=== PATIENT | female | born 1980 | race Caucasian/White ===

== ENCOUNTER → 2016-09-09 | Outpatient (CLI) | payer OTHER ==
[~2016-09-09] MED LIST: CHOL100010 PO; CLIN150C PO; DOCU-94 PO; FRRS300 PO; MTR600X PO; OXYC-57 PO; OXYC7.5T78 PO; PREN1TAB29 PO
[2016-09-09 13:11] LABS: GTGD 50 Grams
[2016-09-10 13:57] LABS: AFP CONCENTRATION 45.5 NG/ML; AFP MULTIPLE OF MEDIAN 1.52; AFPTS GESTATIONAL AGE 15.4 WEEKS; AFPTS INSULIN DEP DIABETIC? NO; AFPTS MATERNAL WT 151 LBS; ALPHA-FETOPROTEIN RACE CAUCASIAN=W; EDD DETERMINED BY ULTRASOUND; HISTORY OF NTD NO; REPEAT SAMPLE? NO
== END | disposition home or self-care (01) ==
LOC: C.LAB1850 10:50
PROVIDERS: ATTEND Obstetrics & Gynecology
DX: O09.02 Supervision of pregnancy with history of infertility, second trimester (principal); Z3A.00 Weeks of gestation of pregnancy not specified; O09.813 Supervision of pregnancy resulting from assisted reproductive technology, third trimester

== ENCOUNTER → 2016-09-16 | Outpatient (CLI) | payer OTHER | END | disposition home or self-care (01) | LOC: C.LAB1850 09:01 | PROVIDERS: ATTEND Obstetrics & Gynecology | DX: O28.1 Abnormal biochemical finding on antenatal screening of mother (principal); Z3A.00 Weeks of gestation of pregnancy not specified ==

== ENCOUNTER → 2016-12-03 | Outpatient (CLI) | payer OTHER ==
[2016-12-03 10:43] LABS: HEMATOCRIT 32.4 % (37-47)
[2016-12-03 13:03] LABS: URINE APPEARANCE CLEAR (CLEAR); URINE BILIRUBIN NEG (NEG); URINE COLOR YELLOW; URINE NITRITE NEG (NEG); URINE PH 6.5 (4.5-7.5); URINE SPECIFIC GRAVITY 1.013 (1.000-1.030); UROBILINOGEN NEG (NEG)
[2016-12-03 13:11] LABS: MANUAL MICROSCOPIC REQUIRED? NO; REVIEW REQ? NO
== END | disposition home or self-care (01) ==
LOC: C.LAB1850 08:55
PROVIDERS: ATTEND Obstetrics & Gynecology
DX: O09.813 Supervision of pregnancy resulting from assisted reproductive technology, third trimester (principal); Z3A.00 Weeks of gestation of pregnancy not specified

== ENCOUNTER → 2017-02-04 | Outpatient (CLI) | payer OTHER | END | disposition home or self-care (01) | LOC: C.LABSPEC 13:28 | PROVIDERS: ATTEND Obstetrics & Gynecology | DX: O09.813 Supervision of pregnancy resulting from assisted reproductive technology, third trimester (principal) ==

== ENCOUNTER 2017-03-07 03:42 | Inpatient (IN) | payer OTHER ==
[~2017-03-07] VITALS: Ht 157.5 cm; Wt 79.5 kg
[~2017-03-07 03:42] MED LIST changes: -CLIN150C PO; -DOCU-94 PO; -FRRS300 PO; -MTR600X PO; -OXYC-57 PO
[2017-03-07] MEDS ORDERED: DOCU-94 PO (04:41)
[2017-03-07 04:43] VITALS: Ht 157.5 cm; Wt 79.5 kg
[2017-03-07] MEDS ORDERED: PENICILLIN G POTASSIUM IV 6 MU in DEXTROSE 5% 250ML IV SCH (04:45)
[2017-03-07] MEDS ORDERED: NURSING VERBAL MED ORDER ONE ×3 (04:45)
[2017-03-07] MEDS ORDERED: BUTORPHANOL TARTRATE 1 MG/ML VIAL IV ONE (04:45)
[2017-03-07] MEDS ORDERED: LACTATED RINGER'S 1000ML 1,000 ML IV PRN (05:21)
[2017-03-07] MEDS: LACTATED RINGER'S 1000ML 1,000 ML IV SCH ×4 (05:57→16:08)
[2017-03-07] MEDS ORDERED: BUPIVACAINE 0.25% 30 ML VIAL ONE (06:14)
[2017-03-07] MEDS ORDERED: EpHEDrine SULFATE INJ 50 MG/ML AMP ONE (06:14)
[2017-03-07] MEDS ORDERED: FENTANYL CITRATE INJ 50 MCG/1 ML 2 ML VIAL ONE (06:14)
[2017-03-07] MEDS ORDERED: FENTANYL 2MCG/ML ROPIV 1.25MG/ML 100ML BAG EPI ONE (06:14)
[2017-03-07 06:18] LABS: MEAN CELL VOLUME 99.7 fL (80-100); MEAN CORPUSCULAR HEMOGLOBIN 32.9 pg (25-34); PLATELET COUNT 143 K/uL (130-400); RED BLOOD COUNT 3.31 M/uL (4.2-5.4); WHITE BLOOD COUNT 11.06 K/uL (4.8-10.8)
[2017-03-07] MEDS ORDERED: LACTATED RINGER'S 1000ML 500 ML IV PRN ×3 (07:23→17:44)
[2017-03-07] MEDS ORDERED: NALOXONE HCL INJ 1 MG in SODIUM CHLORIDE 0.9% 1000ML 1,000 ML IV PRN ×5 (07:23→17:44)
[2017-03-07] MEDS ORDERED: PROMETHAZINE HCL INJ 25 MG in SODIUM CHLORIDE 0.9% 50ML 50 ML IV PRN (07:30)
[2017-03-07] MEDS ORDERED: DiphenhydrAMINE HCL 50 MG/ML VIAL IV PRN ×2 (07:30→17:45)
[2017-03-07] MEDS ORDERED: ONDANSETRON INJ 2 MG/ML 2 ML VIAL IV PRN ×2 (07:30→17:45)
[2017-03-07] MEDS ORDERED: NALOXONE HCL INJ 0.4 MG/1 ML VIAL/CARP IV PRN (07:30)
[2017-03-07] MEDS ORDERED: NALBUPHINE HCL INJ 10 MG/ML AMP IV PRN ×2 (07:30→17:45)
[2017-03-07] MEDS ORDERED: FENTANYL 2MCG/ML ROPIV 1.25MG/ML 100ML BAG EPI PRN (07:30)
[2017-03-07] MEDS ORDERED: EpHEDrine SULFATE INJ 50 MG/ML AMP IV PRN ×2 (07:30→17:45)
[2017-03-07] MEDS ORDERED: OXYTOCIN 30 UNITS/500ML NSS IV PRN (08:00)
[2017-03-07] MEDS: PENICILLIN G POTASSIUM IV 3 MU in DEXTROSE 5% 100ML IV PRN ×2 (08:44→12:41)
[2017-03-07] MEDS ORDERED: ACETAMINOPHEN 500 MG TAB PO STA (13:54)
[2017-03-07] MEDS ORDERED: LACTATED RINGER'S 1000ML 1,000 ML IV SCH ×2 (15:56→17:33)
[2017-03-07] MEDS ORDERED: CITRIC ACID/SODIUM CITRATE 15 ML UDC PO ONE (16:00)
[2017-03-07] MEDS ORDERED: CEFAZOLIN IV 2,000 MG in DEXTROSE 5% 50ML 50 ML IV SCH (16:15)
--- NOTE | 2017-03-07 16:21 | History & Physical Bridge Note ---
H&P Re-Evaluation Bridge Note: I have examined the patient, reviewed the History & Physical and in the interval since the performance of the History & Physical I have noted the following changes of clinical significance: No changes noted. See my last note in QS for details. pt readied for c/s.
[2017-03-07] MEDS ORDERED: MoRPHine SULFATE PF 1 MG/ML 10 ML AMP/VIAL ONE (16:23)
[2017-03-07] MEDS ORDERED: OXYTOCIN INJ 10 UNITS/ML VIAL ONE (16:23)
[2017-03-07] MEDS ORDERED: CARBOPROST TROMETHAMINE 250 MCG/ML AMP ONE (16:51)
[2017-03-07] MEDS ORDERED: KETOROLAC TROMETHAMINE 30 MG/ML VIAL ONE (17:26)
[2017-03-07] MEDS ORDERED: SODIUM CHLORIDE 0.9% 1000ML 1,000 ML IV PRN (17:44)
[2017-03-07] MEDS ORDERED: NALOXONE HCL INJ 0.08 MG in SYRINGE 1.8 ML IV PRN (17:44)
--- NOTE | 2017-03-07 17:44 | Anesthesia Procedure Note ---
Anesthesia Epidural Removal Nt Date & Time Mar 07, 2017 at 17:43 Vital Signs Pain Intensity: 6.0 Notes Mental Status: alert / awake / arousable, participated in evaluation Nausea / Vomiting: adequately controlled Pain: adequately controlled Airway Patency, RR, SpO2: stable & adequate BP & HR: stable & adequate Hydration State: stable & adequate Neuraxial Anesthesia: was administered Anesthetic Complications: no major complications apparent, pt satisfied with anesthetic care Epidural: removed without complications, with tip intact
[2017-03-07] MEDS ORDERED: SUPERCREAM 0.870 % 15GM JAR EXT PRN (17:45)
[2017-03-07] MEDS ORDERED: HYDROCORTISONE ACETATE 25 MG SUPP PR PRN (17:45)
[2017-03-07] MEDS ORDERED: MoRPHine SULFATE 2 MG/ML CARP IV PRN (17:45)
[2017-03-07] MEDS ORDERED: KETOROLAC TROMETHAMINE 30 MG/ML VIAL IV. PRN (17:45)
[2017-03-07] MEDS ORDERED: DIPHTHERIA/TETANUS/PERTUSSIS 0.5 ML SYR/VIAL IM. ONE (17:45)
[2017-03-07] MEDS ORDERED: BENZOCAINE 20% AER SPR 82.5 GM CAN EXT PRN (17:45)
[2017-03-07] MEDS ORDERED: LANOLIN OINT EXT PRN ×2 (17:45)
[2017-03-07] MEDS ORDERED: NALOXONE HCL 0.4 MG/1 ML VIAL/CARP IV PRN (17:45)
[2017-03-07] MEDS ORDERED: NO NARCOTICS OR SEDATIVES SCH (17:45)
[2017-03-07] MEDS ORDERED: MoRPHine SULFATE PF 1 MG/ML 10 ML AMP/VIAL EPI PRN (17:45)
--- NOTE | 2017-03-07 17:49 | [facility] Operative Report ---
Operative Report Operative Date Mar 07, 2017. Pre-Operative Diagnosis 1. 41 week intrauterine 2. Spontaneous rupture of membranes 3. Thin meconium 4. Failed Pitocin induction 5. tachycardia Post-Operative Diagnosis same Procedure(s) Performed Primary low transverse section Surgeon Dr. Castillo Computer Support Analyst Surgeon(s) Dr. Mao Estimated Blood Loss 800 Findings Viable female infant Apgars 8 and 9 weight 8 lbs. 14 oz. large distended bladder overlying the lower uterine segment with Sandoval bulb easily palpable anteriorly. Uterus rotated to the patient's right. Filmy adhesions throughout. Evidence of bilateral salpingectomies. Normal ovaries otherwise. Fluids 1700 Specimens 1. Placenta 2. Cord gases Drains Sandoval catheter Anesthesia epidural with Duramorph Complication(s) None Disposition Recovery Room / PACU Indications 36-year-old 2 para 0020 at 41+ weeks who presented with spontaneous rupture of membranes membranes approximately midnight on 03/07/2017. Although the patient had some spontaneous contractions after approximately 6 hours when they were not progressing her cervix the decision was made to begin with a Pitocin induction. It is significant to mention that thin meconium was noted. The patient was also group beta strep positive and penicillin was begun in the early hours of the morning of 03/07/2017. The patient received an epidural due to request prior to the Pitocin starting. Despite Pitocin the cervix was not progressing and the [place] units were not adequate. The heart tones elevated from the 130s and the baseline in the morning to approximately 185 at the point of decision to proceed with . With heart tones in the 185 and variable decelerations, decreasing variability and evidence of early decelerations that did not make sense based on the patient's physical exam, the patient was counseled about section and agreed. Description of Procedure The patient was taken to the operating room and identified. Her epidural had been bolused and she was placed in the supine position with a leftward tilt and prepped and draped in the usual sterile fashion. A Sandoval catheter had already been placed under sterile conditions. It did have return of clear yellow urine. Her anesthesia level was tested and the knife was used to cut a fetus still skin incision was carried down to the underlying layer of fascia. The fascia was nicked in the midline and this opening was extended laterally using Rockwell scissors. Bushra clamps are placed on the superior and inferior aspects of the fascial incision tenting upwards and the underlying rectus muscles were dissected off the overlying fascia both sharply and bluntly using Rockwell scissors. The rectus muscles were probably in the midline and the peritoneal cavity was bluntly entered into. A large distended bladder was encountered. The Sandoval balloon could easily be palpated at this level. The uterus was clearly rotated. The bladder blade was placed and the vesicouterine peritoneum was entered into sharply and extended bluntly laterally. The bladder flap was created. The bladder blade was replaced. A knife was used to create a hysterotomy that was then stretched. The operators hand was placed through the hysterotomy and the head was elevated and flexed and delivered with fundal pressure. The nose and mouth were bulb suctioned. The shoulders and body were then delivered with further fundal pressure. The infant was vigorous and crying at . Cord gases were obtained. The placenta was attempted to be manually expressed however the cord evulsed. The placenta was then manually removed. Uterus was quite boggy. It was exteriorized. It was cleared of all clots and debris. Despite dilute Pitocin the uterus remained boggy and subcutaneous Hemabate was administered directly into the uterine muscle. This improved uterine tone. The hysterotomy was reapproximated in 2 layers first running interlocking layer of 0 Vicryl, followed by imbricating layer of 0 Vicryl for excellent hemostasis. An additional bleeding site was stitched with figure-of- eight sutures of 2-0 Vicryl for excellent hemostasis. This could not be elevated out of the pelvis for irrigation behind the uterus and therefore the uterus was returned to the abdomen. Gutters were cleared of all clots and debris. The hysterotomy was reinspected and noted to be hemostatic. Bladder was still not well drained. It was evident that there was blood in the Sandoval catheter bag however the urine seemed to be clearing within the catheter directly. Fascia closed in running fashion using 0 Vicryl. The subcutaneous fat was copiously irrigated and reapproximated using 2-0 chromic. The skin was then closed in a subcuticular fashion using 4-0 Vicryl. All sponge lap and needle counts were correct 2. The patient was returned to the recovery room in stable condition. I attest to the content of the Intraoperative Record and any orders documented therein. Any exceptions are noted below.
[2017-03-07] MEDS: OXYTOCIN INJ 20 UNITS in LACTATED RINGER'S 1000ML 1,000 ML IV SCH (19:06)
[2017-03-07 20:20] VITALS: BP 103/56; PULSE 89; TEMP 36.7; O2SAT 97
[2017-03-07] MEDS: SIMETHICONE 80 MG CHEW PO SCH (20:51)
[2017-03-07 21:20] VITALS: O2SAT 95
[2017-03-07 22:20] VITALS: O2SAT 95
[2017-03-07 23:40] VITALS: BP 106/72; PULSE 92; TEMP 36.8; O2SAT 97
[2017-03-08] VITALS (14 sets, daily range): BP systolic 97–126; BP diastolic 63–76; PULSE 67–89; TEMP 36.6–37.1; O2SAT 97–100
[2017-03-08] MEDS: OXYTOCIN INJ 20 UNITS in LACTATED RINGER'S 1000ML 1,000 ML IV SCH (03:38)
[2017-03-08 06:49] LABS: MEAN CORPUSCULAR HEMOGLOBIN 33.6 pg (25-34); MEAN CORPUSCULAR HGB CONC 33.6 g/dl (32-36); MEAN PLATELET VOLUME 10.2 fL (7.4-10.4); PLATELET COUNT 121 K/uL (130-400); WHITE BLOOD COUNT 13.81 K/uL (4.8-10.8)
[2017-03-08 07:20] LABS: ANISOCYTOSIS PRESENT; BASO % 0.1 %; BASO ABS # 0.01 K/uL (0-0.2); COMPLETE YES; EOS % 0.1 %; HYPOCHROMIA PRESENT; IG% 0.2 %; LYMPH % 9.8 %; LYMPH ABS # 1.36 K/uL (1.2-3.4); MONO % 6.6 %; NEUT % 83.2 %
--- NOTE | 2017-03-08 07:20 | Progress Note ---
Subjective Mar 08, 2017. Subjective conversation w/ patient, physical exam Ambulation: limited ambulation (in bed so far) Voiding: no voiding problems Passing Gas: No Diet Tolerance: Clear Liquids Lochia: Moderate Feeding Type: Breast Feeding Objective Vital Signs Date Time Temp Pulse Resp B/P (MAP) Pulse Ox O2 Delivery O2 Flow Rate FiO2 03/08/17 06:30 18 99 03/08/17 05:30 18 99 03/08/17 04:30 18 100 03/08/17 03:40 37.1 89 18 107/69 (82) 100 Room Air 03/08/17 03:30 18 100 03/08/17 02:30 18 100 03/08/17 01:30 18 100 03/08/17 00:30 18 97 03/07/17 23:40 36.8 92 18 106/72 (83) 97 Room Air 03/07/17 23:40 97 Room Air 03/07/17 23:40 18 97 03/07/17 22:20 18 95 03/07/17 21:20 16 95 03/07/17 20:20 18 97 03/07/17 20:20 36.7 89 18 103/56 (72) 97 Room Air 03/07/17 20:20 97 Room Air Physical Exam General Appearance: WELL-APPEARING, WD/WN, NO APPARENT DISTRESS Respiratory/Chest: lungs clear Cardiovascular: regular rate, rhythm Abdomen: normal bowel sounds, non tender, soft Fundus: Firm, Relation to Umbilicus (1 down) Incision Description: Clean, Dry & Intact Extremities: non-tender Laboratory Results Last 24 Hours Test 03/08/17 06:14 White Blood Count 13.81 K/uL Red Blood Count 2.50 M/uL Hemoglobin 8.4 g/dL Hematocrit 25.0 % Mean Corpuscular Volume 100.0 fL Mean Corpuscular Hemoglobin 33.6 pg Mean Corpuscular Hemoglobin Concent 33.6 g/dl Platelet Count 121 K/uL Mean Platelet Volume 10.2 fL RDW Standard Deviation 51.6 fL RDW Coefficient of Variation 14.5 % Assessment and Plan Post-, Post-Op Day#: 1 Continue Routine Care: stable, routine care. adv diet with flatus, ambulate, will plan to keep iglesias until tomorrow am due to findings at surgery. pt aware and agreeable. hgb noted.
[2017-03-08] MEDS ORDERED: ONDANSETRON INJ 2 MG/ML 2 ML VIAL IV PRN (08:30)
[2017-03-08] MEDS ORDERED: DC INTRASPINAL MORPHINE SCH (08:30)
[2017-03-08] MEDS ORDERED: KETOROLAC TROMETHAMINE 30 MG/ML VIAL IV. PRN (08:30)
[2017-03-08] MEDS ORDERED: ZOLPIDEM TARTRATE 5 MG TAB PO PRN (08:30)
[2017-03-08] MEDS ORDERED: OXYCODONE/ACETAMINOPHEN 5-325 TAB PO PRN (08:30)
[2017-03-08] MEDS ORDERED: DiphenhydrAMINE HCL 50 MG/ML VIAL IV PRN (08:30)
[2017-03-08] MEDS: DOCUSATE SODIUM 100 MG CAP PO SCH (09:20)
[2017-03-08] MEDS: SIMETHICONE 80 MG CHEW PO SCH ×4 (09:20→19:49)
[2017-03-08] MEDS: OXYCODONE/ACETAMINOPHEN 5-325 TAB PO PRN ×3 (12:03→21:08)
[2017-03-08] MEDS: IBUPROFEN 600 MG TAB PO PRN ×3 (12:03→21:08)
[2017-03-08] MEDS ORDERED: MAGNESIUM HYDROXIDE SUSP 30 ML UDC PO PRN (20:45)
[2017-03-09] MEDS ORDERED: BISACODYL 5 MG TABEC PO ONE ×2 (00:15→22:00)
[2017-03-09] MEDS: IBUPROFEN 600 MG TAB PO PRN ×3 (01:27→12:36)
[2017-03-09] MEDS: OXYCODONE/ACETAMINOPHEN 5-325 TAB PO PRN ×3 (04:19→12:36)
[2017-03-09 06:36] LABS: HEMATOCRIT 22.2 % (37-47)
--- NOTE | 2017-03-09 07:15 | Progress Note ---
Subjective Mar 09, 2017. Subjective conversation w/ patient, physical exam Ambulation: ambulating normally Voiding: no voiding problems Passing Gas: Yes Diet Tolerance: Regular Diet Lochia: Small Feeding Type: Breast Feeding Comment: baby having seizures last night- multiple small skull fractures on CT scan Review of Systems Constitutional: No fever, No chills, No sweats, No weight loss, No weakness, No fatigue, No problem reported Breast: No see HPI, No breast lump, No change in shape, No nipple discharge, No breast pain, No problem reported Abdomen: No pain, No nausea, No vomiting, No diarrhea, No constipation, No GI bleeding, No problem reported Female : No see HPI, No dysuria, No urinary frequency, No hematuria, No incontinence, No abnormal vaginal bleeding, No vaginal discharge, No problem reported Objective Vital Signs Date Time Temp Pulse Resp B/P (MAP) Pulse Ox O2 Delivery O2 Flow Rate FiO2 03/08/17 23:50 99 Room Air 03/08/17 15:35 36.6 67 18 126/76 (93) 97 Room Air 03/08/17 15:35 98 Room Air 03/08/17 11:50 36.9 83 16 116/76 (89) Room Air 03/08/17 08:30 16 99 03/08/17 07:30 18 99 03/08/17 07:20 36.7 82 16 97/63 (74) 97 Room Air Physical Exam General Appearance: WELL-APPEARING, NO APPARENT DISTRESS Abdomen: non tender, soft Fundus: Firm, Non-Tender, Relation to Umbilicus (1 below U) Incision Description: Clean, Dry & Intact Extremities: no calf tenderness Laboratory Results Last 24 Hours Test 03/09/17 06:00 Hemoglobin 7.6 g/dL Hematocrit 22.2 % Assessment and Plan Post-, Post-Op Day#: 2 Continue Routine Care: stable . post-op course continue current care plan
[2017-03-09 07:23] VITALS: BP 106/64; PULSE 66; TEMP 36.7; O2SAT 95
[2017-03-09] MEDS ORDERED: OXYC-57 PO (07:55)
[2017-03-09] MEDS ORDERED: MTR600X PO (07:55)
--- NOTE | 2017-03-09 07:57 | Discharge Instructions ---
Discharge Instructions Date of Service Mar 09, 2017. Admission Reason for Admission: Check Labor Discharge Discharge Diagnosis / Problem: recovery from Discharge Goals Goal(s): Routine recovery after Medications Continue Dispensed Medications: supercream, lansinoh Activity Recommendations Activity Limitations: per Instructions/Follow-up section . Instructions / Follow-Up Instructions / Follow-Up ACTIVITY RECOMMENDATIONS: * Gradual return to full activity over the next 2-3 weeks. * No lifting - nothing heavier than baby over the next 2-3 weeks. * Do not engage in vigorous exercise, sexual activity or sports until cleared by your physician. * Do not drive or operate any motorized equipment until cleared by your physician. * You may shower/bathe daily. MEDICATIONS: For discomfort or pain, you may use Acetaminophen (Tylenol), Ibuprofen (Advil), or Naproxen (Aleve) following the package directions. For constipation you may use Colace following the package directions. BREAST CARE: If you are not breast feeding: * Wear a supportive bra 24 hours a day for one to two weeks. * Avoid stimulating your breasts and nipples as much as possible during the first few weeks after delivery. * When taking a shower, have the warm water hit your back, not breasts. * When your breasts feel full, apply ice packs. Usually three to four times a day helps ease the discomfort. * Take a mild pain medication (Tylenol / Motrin) when you are uncomfortable. If breast feeding: * Use breast milk to lubricate nipples. Lansinoh cream may be used for sore nipples. You do not need to remove cream prior to breast feeding. If using a different brand of cream, check the label for directions regarding removal of cream prior to nursing. * Wear a supportive bra. * If having problems with breasts or breast feeding, call a senior consultant or your health care provider. SPECIAL CARE INSTRUCTIONS: When you are discharged from the hospital, it is important for you to follow the instructions listed below: * During the first week at home, you should be able to care for yourself and your baby. In addition, the usual light household activities are encouraged. * Limit your activities to the way you feel. Do not try to clean the house or move furniture. Be sensible. * If you actively engage in sports and have done so up until the time of your delivery, you may resume these activities as soon as you feel able. This may take up to one month or even longer. Use good judgment. * Continue to take your vitamins for at least six weeks after the of your baby. * Your diet need not be limited unless you were on a special diet before your delivery. Breast-feeding mothers need around 2500 calories per day and at least 64-80 ounces of fluid per day (8 to 10 glasses). * You should eat foods from the four major food groups. Crash diets or fad diets are to be avoided. Eating lean meats, fresh fruits and vegetables, low-fat dairy products, high fiber foods and a regular exercise program, will help you get back to your pre- weight without putting your health at risk. * Constipation is sometimes a problem after delivery. Take a mild laxative as needed. If breast feeding, Milk of Magnesia is acceptable to use. You may use a suppository or Fleets enema. * A daily shower or tub bath is suggested. Wash incision daily with warm soapy water and pat dry. It doesn't need to be covered unless drainage is present. * A bloody vaginal discharge will usually continue until around four weeks . A small amount of bleeding may continue for as long as six weeks. Vaginal discharge changes from the bright red bleeding after delivery to pink then brownish and finally yellowish-pink before becoming white and disappearing. * Bleeding may increase with activity. Your first period may come in 4-8 weeks. If you are breast feeding, your period may be delayed even longer. * [place] (sex) can begin whenever both you and your partner feel comfortable and do not have any form of genital infection. It is recommended that you wait at least six weeks for internal and external healing to occur. If you have questions, please talk to your health care practitioner. A condom should be used to prevent infection and . * Foreplay, gentle intercourse and lubrication is very important the first several times to prevent pain. A water-based lubricant such as K-Y jelly or Astroglide may be used. * If you have RH negative blood and your baby is RH positive, you will receive RHOGAM by injection prior to discharge. The nurse will give you a card to keep with you that has the date and place that you received RHOGAM after delivery. * During your care, you had a Rubella screen done to check for the presence of rubella antibodies in your blood. If your test was negative, you will receive a Rubella vaccine prior to discharge. This vaccine may cause a fever, soreness at the injection site and flu-like symptoms. If these symptoms persist, notify your health care practitioner. is not advised for one month after a Rubella vaccine. * Verbalizes understanding of car seat law as reviewed with patient nursing. * Car Seat hand-out given and reviewed with patient by nursing. * Shaken baby information reviewed with patient by nursing. Call you doctor if: * Heavy bleeding (saturating several pads an hour) or passing clots the size of your fist. * A fever >101 degrees F (38.3 degrees C) on two occasions four hours apart and /or chills. * Unusual pain in the pelvic or vaginal areas. * Call the doctor for any increased redness, drainage or swelling around the incision and any pain unrelieved by prescribed pain medication. * "Baby Blues" lasting longer than two weeks. If you have any questions or concerns, call your health care practitioner at . FOLLOW UP VISIT: * Please call the office at to schedule a 6 week examination. It is important you keep this appointment. It is important for you to make arrangements for either yearly or twice yearly check-ups thereafter. Current Hospital Diet Patient's current hospital diet: Regular OB Diet, Vegetarian Diet Discharge Diet Recommended Diet: Regular OB Diet Procedures Procedures Performed: Primary caesarean section. Delivery of live female child at 1647. Pending Studies Studies pending at discharge: no Medical Emergencies . Who to Call and When: Medical Emergencies: If at any time you feel your situation is an emergency, please call [phone] immediately. . Non-Emergent Contact Non-Emergency issues call your: [employer] [employer] . . "Provider Documentation" section prepared by Agustina Coley. . VTE Core Measure Inpt VTE Proph given/why not?: Treatment not indicated
[2017-03-09] MEDS ORDERED: FRRS300 PO (07:58)
[2017-03-09] MEDS ORDERED: FERROUS SULFATE 325 MG TAB PO SCH (08:00)
[2017-03-09] MEDS: SIMETHICONE 80 MG CHEW PO SCH ×2 (08:32→12:36)
[2017-03-09] MEDS: DOCUSATE SODIUM 100 MG CAP PO SCH (08:32)
--- NOTE | 2017-03-09 14:31 | Progress Note ---
Progress Note Date of Service Mar 09, 2017. Progress Note Patient is POD#2, feeling well. Ambulating well, no concerns/complaints. Asymptomatic anemia - Hgb 7.6. Discussed starting iron when bowel movements resume. Baby is being transferred to [place] for further care - patient is requesting discharge. OK to discharge to home. Discharge instructions discussed, patient agreeable. Followup in 6w in office.
[2017-03-09 14:41] VITALS: BP_DIAS 64; PULSE 66; TEMP 36.7
--- NOTE | 2017-03-15 21:39 | Discharge Summary ---
Discharge Summary Date of Service Mar 07, 2017. Date of discharge March 09 2017. Discharge Summary Admission diagnoses: 41+ week , spontaneous rupture of membranes, thin meconium, failed induction, tachycardia. Discharge diagnoses: same Procedures: primary low transverse section Brief History and Hospital course: 36yo at 41+weeks mohan presented to L&D with spontaneous rupture of membranes on day of her admission. She received penicillin IV due to GBS positivity. After 6 hours of no significant labor, pitocin induction was initiated. She did receive an epidural for anesthesia. Her progress was slow and her fetus became tachycardic. Significant doses of pitocin were being used without adequate labor pattern using an intrauterine pressure catheter. Additionally the cervix was not progressing. The heart tone baseline and variability were concerning given how remote the situation was from vaginal delivery. Recommendation was made for c/section and patient agreed. See intrapartum notes and operative note for more detail. She underwent stated procedure with EBL 800cc. Her postop recovery was unremarkable. Her post operative hemoglobin was 7.6. She tolerated this level without problem and was advised to start iron. Unfortunately her baby required transfer to tertiary facility and on her postoperative day #2 she requested discharge. She was stable and therefore this was granted. Instructions were reviewed, appropriate pain medication prescriptions were given and she was advised to followup in 6 weeks.
== END 2017-03-09 16:00 | disposition home or self-care (01) | DRG 765 ==
LOC: C.OPB 03:42 → C.LD 03:48 → C.OPB 04:24 → C.OBG 20:51
PROVIDERS: ADMIT Obstetrics & Gynecology; ATTEND Obstetrics & Gynecology
PROC: 3E033VJ Introduction of Other Hormone into Peripheral Vein, Percutaneous Approach (ICD-10-PCS; principal; 2017-03-07 16:06)
PROC: 10D00Z1 Extraction of Products of Conception, Low, Open Approach (ICD-10-PCS; principal; 2017-03-07 16:06)
DX: O42.02 Full-term premature rupture of membranes, onset of labor within 24 hours of rupture (principal); Q43.1 Hirschsprung's disease; O48.0 Post-term pregnancy; Z37.0 Single live birth; O77.0 Labor and delivery complicated by meconium in amniotic fluid; O35.1XX1 Maternal care for (suspected) chromosomal abnormality in fetus, fetus 1; O26.893 Other specified pregnancy related conditions, third trimester; O76 Abnormality in fetal heart rate and rhythm complicating labor and delivery; O99.824 Streptococcus B carrier state complicating childbirth; O61.9 Failed induction of labor, unspecified; O35.8XX0 Maternal care for other (suspected) fetal abnormality and damage, not applicable or unspecified; O99.612 Diseases of the digestive system complicating pregnancy, second trimester; O99.212 Obesity complicating pregnancy, second trimester; E66.9 Obesity, unspecified; D64.9 Anemia, unspecified; O99.02 Anemia complicating childbirth; Z68.32 Body mass index [BMI] 32.0-32.9, adult; Z79.899 Other long term (current) drug therapy; Z3A.41 41 weeks gestation of pregnancy

== ENCOUNTER → 2017-04-30 | Outpatient (CLI) | payer OTHER ==
[~2017-04-30] MED LIST changes: -CHOL100010 PO; +CLIN150C PO; +DOCU-94 PO; +FRRS300 PO; +MTR600X PO; +OXYC-57 PO; -OXYC7.5T78 PO
--- NOTE | 2017-04-30 16:08 | MAMMOGRAPHY REPORT ---
ULTRASOUND OF RIGHT BREAST: 04/30/2017 CLINICAL HISTORY: The patient is since March and is currently breast-feeding. She had an e pisode of mastitis a few weeks ago which resolved. Approximately 1.5 weeks ago, she had recurrent sy mptoms including erythema and some pain, which has progressively worsened. She also has a palpable l ump at the site of the erythema. COMPARISON: No prior exams were available for comparison. TECHNIQUE: Real-time targeted ultrasound of the right breast was performed. FINDINGS: Real-time, high resolution targeted ultrasound was performed of the area of the palpable l ump and associated overlying erythema, in the right breast at 3:00, approximately 3 cm from the nippl e. At the site of the palpable lump there is a mixed echogenicity fluid collection which measures 2. 6 x 2.1 x 2.6 cm. Given the clinical history, findings are consistent with abscess. IMPRESSION: ACR BI-RADS CATEGORY 2: BENIGN Fluid collection measuring 2.6 cm at the site of the palpable lump in the right 3:00 breast. Given t he clinical history, findings are consistent with an abscess. There is no sonographic evidence of ma lignancy. The patient was verbally notified of the results. Results also discussed with Dr. Castillo. We will at tempt ultrasound guided aspiration today. Sallie Joyner M.D. /:04/30/2017 15:04:04 Rn Family Practice: Lou SORIANO(Chris)(M), [facility] letter sent: Normal 1/2 BI-RADS Code: ACR BI-RADS Category 2: Benign
--- NOTE | 2017-04-30 16:08 | MAMMOGRAPHY REPORT ---
ASPIRATION RIGHT BREAST: 04/30/2017 CLINICAL HISTORY: Right breast abscess. PATIENT CONSENT: The procedure and risks of ultrasound-guided abscess drainage were discussed in full with the patient. Both oral and written consents were obtained. PROCEDURE DESCRIPTION: With ultrasound guidance, aseptic technique, and 1% lidocaine as a local anest hetic, aspiration was performed of the abscess in the right 3:00 breast. Approximately 5 mL of purul ent fluid was aspirated and sent to cytology for Gram stain and culture. The abscess nearly complete ly aspirated, with some strandy fluid seen after aspiration without a focal residual fluid collection evident. Direct pressure was applied to the site immediately post procedure and hemostasis was achi eved. The patient tolerated the procedure without complication. She was given wound care instructio ns. IMPRESSION: ASPIRATION Successful ultrasound-guided aspiration of the abscess in the right 3:00 breast. Purulent fluid was sent to cytology for Gram stain and culture. She will receive results from her referring provider. Sallie Joyner M.D. ah/:04/30/2017 15:34:32 Death Clearance Coordinator: Lou SAMUEL)(Nathalie), [facility]
== END | disposition home or self-care (01) ==
LOC: C.MAMM 14:17
PROVIDERS: ATTEND Obstetrics & Gynecology
DX: N63 Unspecified lump in breast (principal)

== ENCOUNTER 2017-05-02 16:37 | Emergency (ER) | payer OTHER ==
[~2017-05-02] VITALS: Ht 157.5 cm; Wt 64.4 kg
[~2017-05-02 16:37] MED LIST changes: -CLIN150C PO
[2017-05-02 16:45] VITALS: TEMP 36.8; Ht 157.5 cm; Wt 64.4 kg
[2017-05-02] MEDS ORDERED: CLIN150C PO ×2 (17:04→17:18)
[2017-05-02] MEDS ORDERED: CLINDAMYCIN HCL 150 MG CAP PO ONE (17:15)
[2017-05-02 17:19] VITALS: BP 136/78; PULSE 72; O2SAT 98
--- NOTE | 2017-05-02 17:59 | EMERGENCY ROOM VISIT NOTE ---
History Report prepared by Tim: Aki Cabrera Under the Supervision of: Dr. Zuhair Bennett M.D. First contact with patient: 16:47 Chief Complaint: WOUND INFECTION Stated Complaint: RIGHT BREAST ABSCESS POSSIBLY WORSENING Nursing Triage Summary: Pt reports right breast abscess/infection. States drained on Fri. Seen at PCP on Fri and placed on Keflex. Denies fever/chills. Pt reports, "It looks like it might be filling up again." History of Present Illness The patient is a 36 year old female who presents to the Emergency Room with complaints of a worsening abscess on the right breast for the past 4 days. The patient states that the abscess was recently drained 2 days ago, and she feels that it is accumulating fluid again, though she states that it is not very tender. The patient states that she was put on Keflex, and she is currently breast feeding an 8 week old . She is denying any fever or vomiting. Source of History: patient Onset: two days ago Position: other (right breast) Quality: other (abscess) Timing: worsening Associated Symptoms: No fevers, No vomiting Review of Systems See HPI for pertinent positives & negatives. A total of 6 systems reviewed and were otherwise negative. Past Medical & Surgical Medical Problems: (1) Acute Pharyngitis (2) Hirschsprung disease (3) Infertility-Anovulation Surgical Problems: (1) H/O breast augmentation (2) History of partial colectomy Family History Heart disease Hypertension Social History Smoking Status: Former Smoker Alcohol Use: occasionally Marital Status: Housing Status: lives with family Occupation Status: employed Current/Historical Medications Scheduled Clindamycin Hcl (Cleocin), 300 MG PO TID Vit W/ Ferrous Fumara (), 1 TAB PO DAILY Allergies Coded Allergies: Cantaloupe (Verified Allergy, Mild, MELONS-ITCHING, 05/02/17) Watermelon (Verified Allergy, Mild, MELONS- ITCHING, 05/02/17) Physical Exam Vital Signs Date Time Temp Pulse Resp B/P (MAP) Pulse Ox O2 Delivery O2 Flow Rate FiO2 05/02/17 17:19 72 20 136/78 98 05/02/17 16:45 36.8 69 18 144/88 97 Room Air Physical Exam Constitutional: Vital signs reviewed. Eyes: Pupils are equal round reactive to light. Conjunctiva are noninjected. ENT: Pharynx is clear without erythema or exudate. Mucous membranes are moist. Neck supple without meningeal signs. Respiratory: Clear to auscultation bilaterally. Breath sounds are equal bilaterally. Cardiovascular: Regular rate and rhythm. No rubs or gallops. Chest: Right breast has a 3cm area of erythema with induration and mild fluctuance. No discharge. GI: Soft, nondistended and nontender. Bowel sounds are present. Integumentary: As above. Neurological: The patient is awake and alert. No focal deficits. Psychiatric: Normal affect. Medical Decision & Procedures Medications Administered Medications (Trade) Dose Ordered Sig/Chandni Route Start Time Stop Time Status Last Admin Dose Admin Clindamycin HCl (Cleocin Cap) 300 mg ONE ONCE PO 05/02/17 17:15 05/02/17 17:16 DC 05/02/17 17:06 300 MG ED Course 1647: The patient was evaluated in room B3. A complete history and physical exam was performed. 1658: I reevaluated the patient, and I reviewed the ricks of breast feeding on clindamycin. She states that the baby was in the NICU and had multiple antibiotics already 1704: Upon reevaluation. I discussed tonight's findings with her. She verbalized agreement of the treatment plan. She was discharged home. 1715: Clindamycin HCl 300mg PO Medical Decision This is a 36-year-old female presents with pain to her breast. Differential diagnosis includes abscess, cellulitis, mastitis, MRSA. I did perform a limited focused review of portions of the patient's old chart on the electronic medical record. The patient recently had an ultrasound done on the , and there was a fluid collection measuring 2.6cm. Cultures grew out as staph aureus which is sensitive to clindamycin and Bactrim. I did evaluate the patient as noted above. I did perform a limited bedside ultrasound of the left breast to look for fluid collection. There was a small amount of fluid within the affected area but no significant amount or drainable fluid pocket. At this time I did not recommend drainage. She will stop the Keflex and was placed on clindamycin. She was discharged with a prescription for clindamycin and will follow up with her doctor within 48 hours. Medication Reconcilliation Current Medication List: was personally reviewed by me Blood Pressure Screening Patient's blood pressure: Elevated blood pressure Blood pressure disposition: Referred to PCP Impression Primary Impression: Cellulitis of right breast Scribe Attestation The scribe's documentation has been prepared under my direct and personally reviewed by me in its entirety. I confirm that the note above accurately reflects all work, treatment, procedures, and medical decision making performed by me. Departure Information Dispostion Home / Self-Care Prescriptions Clindamycin Hcl (CLEOCIN) 150 Mg Cap 300 MG PO TID for 10 Days, #60 CAP Prov: Zuhair Bennett M.D. 05/02/17 Referrals Ervin Hough M.D.([facility]) (PCP) Forms HOME CARE DOCUMENTATION FORM, IMPORTANT VISIT INFORMATION, WORK / SCHOOL INSTRUCTIONS Patient Instructions My [facility] Additional Instructions You have been examined and treated today on an emergency basis only. This is not a substitute for, or an effort to provide, complete comprehensive medical care. It is impossible to recognize and treat all injuries or illnesses in a single emergency department visit. It is therefore important that you follow up closely with your physician in 48 hours. Call as soon as possible for an appointment. Return for worsening symptoms or if you develop fever, vomiting, or any other concerning symptoms.
== END 2017-05-02 17:19 | disposition home or self-care (01) ==
LOC: C.EDB 16:39
DX: N61.0 Mastitis without abscess (principal); Q43.1 Hirschsprung's disease; Z98.82 Breast implant status; Z82.49 Family history of ischemic heart disease and other diseases of the circulatory system; Z87.891 Personal history of nicotine dependence

== ENCOUNTER → 2018-01-18 | Outpatient (CLI) | payer OTHER ==
[~2018-01-18] MED LIST changes: -DOCU-94 PO; -FRRS300 PO; -MTR600X PO; -OXYC-57 PO
[2018-01-18 10:29] LABS: FOLLICLE STIMULAT HORMONE 4.68 IU/L; LUTEINIZING HORMONE 4.5 IU/L
== END | disposition home or self-care (01) ==
LOC: C.LAB 07:17
PROVIDERS: ATTEND Specialist
DX: Z31.41 Encounter for fertility testing (principal)

== ENCOUNTER → 2018-03-24 | Outpatient (CLI) | payer OTHER | END | disposition home or self-care (01) | LOC: C.LAB 11:14 | PROVIDERS: ATTEND Specialist | DX: Z13.29 Encounter for screening for other suspected endocrine disorder (principal) ==

== ENCOUNTER 2019-05-01 05:31 | Inpatient (IN) ==
--- NOTE | 2019-04-19 09:37 | PAT Medication Instructions ---
Medication Instructions Date of Service April 19, 2019 Home Medications cholecalciferol (vitamin D3) 2,000 unit PO QAM ferrous gluconate 325 mg PO QPM [id number] fum-folic ac-om3 1 tab PO QAM levothyroxine 50 mcg PO QAM DO NOT take the morning of surgery cholecalciferol (vitamin D3) 2,000 unit PO QAM [id number] fum-folic ac-om3 1 tab PO QAM Take morning of surgery With a small sip of water, OTHERWISE NOTHING TO EAT OR DRINK AFTER MIDNIGHT: levothyroxine 50 mcg PO QAM Take evening before surgery ferrous gluconate 325 mg PO QPM Other Notes If you have any questions please call us at [phone] or [phone] or [phone] or [phone]
--- NOTE | 2019-04-19 13:49 | History & Physical Report ---
Date of Service April 19, 2019 Assessment & Plan (1) Supervision of elderly multigravida: (2) resulting from assisted reproductive technology: (3) Hypothyroid in , antepartum: (4) History of delivery, currently : (5) Antibody E isoimmunization affecting , antepartum: Plan c/s on 05/01. Risks, alternatives and complications reviewed and consent signed. Will plan repeat section. Patient has had prior bilateral salpingectomies. Will do labs morning of OR. History of Present Illness Primary Care Provider: Ervin Hough MD 38yo at 39+wks ega will present to L&D on 05/01/19 for planned section. Doing well today, seen in office 04/19/19. No rom, vb. +FM. No ctx. NST reactive. Feels well. PNC c/b 1. AMA 2. Prior c/s 3. 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 titres always neg. PNL Rh pos, ri, gbs neg OBH: prior c/s-- tachycardia GYNH: nl paps, no stds Allergies Allergy/AdvReac Type Severity Reaction Status Date / Time watermelon Allergy Mild MELONS- Verified 04/19/19 13:06 ITCHING Cantaloupe Allergy Mild MELONS-ITCH Uncoded 04/19/19 13:06 ING No Known Drug Allergies Allergy Uncoded 04/19/19 13:06 Home Medications Home Medications Medication Instructions Recorded Confirmed Type cholecalciferol (vitamin D3) 2,000 unit PO QAM 03/29/19 04/19/19 History ferrous gluconate 325 mg PO QPM 03/29/19 04/19/19 History [id number] fum-folic ac-om3 1 tab PO QAM 03/29/19 04/19/19 History levothyroxine 50 mcg PO QAM 04/13/19 04/19/19 History Patient History Medical History Elevated antibody levels ANTI E History of colostomy temporary - History of ectopic Hx of infertility Hypothyroid Surgical History History of partial colectomy - HAD COLOSTOMY AND REVERSAL Hx of breast augmentation Hx of section Hx of laparoscopy WITH KENAN SALPINGECTOMY Hx of wisdom tooth extraction Family History Aunt Breast cancer Grandfather (Paternal) Stroke Father Colorectal cancer Hypertension Dyslipidemia Grandmother (Paternal) Stroke Breast cancer Colorectal cancer Sister Uterus didelphus Social History Preferred Language: Tajik Communication Ability: Effective Beliefs That Will Affect Care: None marital status: Current Living Situation: Family Feels Safe at Home: Yes Smoking Status: Former smoker Second Hand Exposure: No ; Hx Alcohol Use: No Hx Substance Use: No Review of Systems All systems reviewed & are unremarkable except as noted in HPI & below Physical Exam Constitutional: WD/WN, vitals as above Gastrointestinal (Abdomen): Inspection/Auscultation: + abdominal surgical incision Percussion/Palpation: abdomen soft; abdomen nontender gravid Musculoskeletal: nt calves Genitourinary: OB Exam Monitor Tracing: + external FHT monitor used (NST reactive) and + category I
--- NOTE | 2019-04-19 14:19 | Anesthesiology Consultation ---
Date of Service April 19, 2019 Assessment & Plan (1) Encounter for pre-operative examination: Chart Review Chart Review: Acceptable Risk for Surgery and Patient seen in Pre Admission Testing Consults Requested none Teaching & Discussion Pre-Anesthesia Teaching/Discussion Notes: Instructed NPO after midnight before surgery, except medications with 15 cc of water. Medication instructions provided according to the PAT guidelines. History Surgery Operation Date: 05/01/19 07:30 Proposed Procedures p Section in LD - Nazia Castillo MD, FACOG Height/Weight Height: 5 ft 2.5 in Weight: 81.3 kg Allergies Allergy/AdvReac Type Severity Reaction Status Date / Time watermelon Allergy Mild MELONS- Verified 04/19/19 13:06 ITCHING Cantaloupe Allergy Mild MELONS-ITCH Uncoded 04/19/19 13:06 ING No Known Drug Allergies Allergy Uncoded 04/19/19 13:06 Medications Home Medications Medication Instructions Recorded Confirmed Last Taken cholecalciferol (vitamin D3) 2,000 unit PO QAM 03/29/19 04/19/19 Unknown ferrous gluconate 325 mg PO QPM 03/29/19 04/19/19 Unknown [id number] fum-folic ac-om3 1 tab PO QAM 03/29/19 04/19/19 Unknown levothyroxine 50 mcg PO QAM 04/13/19 04/19/19 Unknown Past Medical History Medical History Elevated antibody levels ANTI E History of colostomy temporary - INFANT History of ectopic Hx of infertility Hypothyroid Exercise / Class Metabolic Activity II 4-5 Yardwork/Stairs/Walk up hill (Becoming less due to advanced . 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 ) Past Family History Family History Aunt Breast cancer Grandfather (Paternal) Stroke Father Colorectal cancer Hypertension Dyslipidemia Grandmother (Paternal) Stroke Breast cancer Colorectal cancer Sister Uterus didelphus Past Surgical History Surgical History History of partial colectomy - HAD COLOSTOMY AND REVERSAL Hx of breast augmentation Hx of section Hx of laparoscopy WITH KENAN SALPINGECTOMY Hx of wisdom tooth extraction Past Anesthesia History No Hx of Anesthesia Complications and No Family Hx of Anesthesia Complications History of PONV No Hx of PONV (During last . ) and Hx of Motion Sickness (Usually only when hungry) Social History Smoking Status: Former smoker Smoking cigarettes per day: 1 ppd x 2 years Do You Dip or Chew Tobacco: No Smoking End Date: 10 YR Hx Alcohol Use: No Hx Substance Use: No Review of Systems Patient denies chest pain, shortness of breath, dyspnea on exertion, joint pain, cough, wheezing, palpitations. +Acid Reflux (with ) Physical Exam Vital Signs BP: 117/77 P: 80 R:14 T: 98.1 SPO2: 96% on RA ENMT Thyromental Distance: > or= 3.5 Finger Breadths (3.5) Mallampati Class: I Neck normal visual inspection; neck extension not limited Respiratory normal respiratory effort Auscultation: lungs clear to auscultation bilaterally Cardiovascular Rate/Rhythm: regular rate and regular rhythm Heart Sounds: no murmur Neurologic moves all extremities Psychiatric Orientation: alert and oriented x 3
[2019-05-01] MEDS ORDERED: LACTATED RINGER'S 1,000 ML IV SCH ×4 (05:45→12:20)
[2019-05-01] MEDS ORDERED: CITRIC ACID/SODIUM CITRATE 15 ML UDC PO SCH (06:00)
[2019-05-01] MEDS ORDERED: CEFAZOLIN 2,000 MG in SYRINGE 0 ML IV SCH (06:00)
[2019-05-01 06:12] LABS: Basophils # (auto) 0.02 K/uL (0-0.2); Basophils % (auto) 0.3 %; Eosinophils # (auto) 0.05 K/uL (0-0.5); Eosinophils % (auto) 0.8 %; Hematocrit (blood only) 34.1 % (37-47); Hemoglobin 11.4 g/dL (12.0-16.0); Immature Granulocytes # (auto) 0.03 K/uL (0.00-0.02); Immature Granulocytes % (auto) 0.5 %; Lymphocytes # (auto) 1.87 K/uL (1.2-3.4); Lymphocytes % (auto) 29.6 %; Mean Corpuscular Hemoglobin 31.9 pg (25-34); Mean Corpuscular Volume 95.5 fL (80-100); Mean Platelet Volume 10.1 fL (7.4-10.4); Monocytes # (auto) 0.48 K/uL (0.11-0.59); Monocytes % (auto) 7.6 %; Neutrophils # (auto) 3.86 K/uL (1.4-6.5); Neutrophils % (auto) 61.2 %; Platelet Count 149 K/uL (130-400); RDW Coefficient of Variation 14.6 % (11.5-14.5); RDW Standard Deviation 50.8 fL (36.4-46.3); Red Blood Count 3.57 M/uL (4.2-5.4); White Blood Count 6.31 K/uL (4.8-10.8)
[2019-05-01 06:18] LABS: Mean Corpuscular Hgb Conc 33.4 g/dL (32-36)
[2019-05-01] MEDS ORDERED: fentaNYL citrate 100 MCG/2 ML VIAL ONE (06:53)
[2019-05-01] MEDS ORDERED: MoRPHine SULFATE PF 1 MG/ML 10 ML AMP/VIAL ONE (06:53)
[2019-05-01] MEDS ORDERED: ONDANSETRON INJ 2 MG/ML 2 ML VIAL ONE (06:53)
[2019-05-01] MEDS ORDERED: OXYTOCIN 10 UNITS/ML VIAL ONE (06:53)
--- NOTE | 2019-05-01 07:17 | History & Physical Bridge Note ---
Date of Service May 01, 2019 History & Physical Bridge Note I have examined the patient, reviewed the History & Physical and in the interval since the performance of the History & Physical I have noted the following changes of clinical significance: no changes noted
[2019-05-01] MEDS ORDERED: KETOROLAC 30 MG/ML VIAL IV PRN (07:53)
[2019-05-01] MEDS ORDERED: NALOXONE HCL 0.08 MG in SYRINGE 1.8 ML IV PRN (07:53)
[2019-05-01] MEDS ORDERED: NALOXONE HCL 1 MG in SODIUM CHLORIDE 0.9% 1000ML 1,000 ML IV PRN (07:53)
[2019-05-01] MEDS ORDERED: DiphenhydrAMINE HCL 50 MG/ML VIAL IV PRN (07:53)
[2019-05-01] MEDS ORDERED: NALOXONE HCL 0.4 MG/1 ML VIAL/CARP IV PRN (07:53)
[2019-05-01] MEDS ORDERED: MoRPHine SULFATE 2 MG/ML CARP IV PRN (07:53)
[2019-05-01] MEDS ORDERED: MEPERIDINE HCL 25 MG/ML CARP IV PRN (07:53)
[2019-05-01] MEDS ORDERED: ONDANSETRON INJ 2 MG/ML 2 ML VIAL IV PRN (07:53)
[2019-05-01] MEDS ORDERED: MoRPHine SULFATE PF 1 MG/ML 10 ML AMP/VIAL INT SPINAL ONE (07:53)
[2019-05-01] MEDS ORDERED: LACTATED RINGER'S 500 ML IV PRN (07:53)
[2019-05-01] MEDS ORDERED: ePHEDrine sulfate 50 MG/ML AMP IV PRN (07:53)
[2019-05-01] MEDS ORDERED: NALBUPHINE HCL INJ 10 MG/ML AMP IV PRN (07:53)
[2019-05-01] MEDS ORDERED: PROMETHAZINE HCL 25 MG in SODIUM CHLORIDE 0.9% 50 ML IV PRN (07:53)
[2019-05-01] MEDS ORDERED: DC INTRASPINAL MORPHINE SCH (08:00)
[2019-05-01] MEDS ORDERED: SODIUM CHLORIDE 0.9% 1000ML 1,000 ML IV SCH (08:00)
[2019-05-01] MEDS ORDERED: NO NARCOTICS OR SEDATIVES SCH (08:00)
--- NOTE | 2019-05-01 08:48 | Post Operative Brief Note ---
PG Immediate Post Op with CF Date of Surgery May 01, 2019 Pre & Post Diagnosis Operation Date: 05/01/19 07:30 Pre-Op Diagnosis: 39 week intrauterine Prior Section Desires repeat section AMA Anti E isoimmunization Post-Op Diagnosis: same Delivery of live male child at 0808 Procedure Operation Date: 05/01/19 07:30 Actual Procedures p Repeat Low Transverse Section - Nazia Castillo MD, FACOG Surgeon Nazia Castillo MD, FACOG Roving Court Reporter Dr. Yanecy Estimated Blood Loss 500 Findings Consistent with Post-Op Diagnosis (viable male apgars 8,9. normal right ovary, left ovary palpably normal. adhesions of sigmoid to posterior uterus and posterior left pelvis ) Fluids 1500 Specimens Specimen Description: A: Placenta hold B: Cord blood donation Drains Sandoval Catheter (inserted after spinal, draining clear urine) Anesthesia Type Spinal Complications none Disposition Accompanied Patient To Recovery: No Disposition: L&D
--- NOTE | 2019-05-01 09:02 | Anesthesiology Progress Note ---
Date of Service May 01, 2019 Anesthesia Post Procedure Vital Signs Vital Signs: Temp Pulse Resp BP Pulse Ox 05/01/19 08:59 79 97 05/01/19 08:57 73 92 05/01/19 08:55 67 101/60 05/01/19 08:54 69 99 05/01/19 06:02 36.5 C 81 18 110/69 05/01/19 05:44 81 110/69 Transfer of Care Handoff Completed per policy Notes Mental Status: alert / awake / arousable and participated in evaluation Patient Amnestic to Procedure: No Nausea / Vomiting: adequately controlled Pain: adequately controlled Airway Patency, RR, SpO2: stable & adequate BP & HR: stable & adequate Hydration State: stable & adequate Neuraxial Anesthesia: was administered and sensory block is resolving Anesthetic Complications: no major complications apparent and Pt Satisfied with anesthetic care
--- NOTE | 2019-05-01 09:14 | Operative Report ---
Post Operative Report Pre & Post Diagnosis Operation Date: 05/01/19 07:30 Pre-Op Diagnosis: 39 week intrauterine Prior Section, Desires repeat section AMA Anti-E isoimmunization IVF pregancy Hypothyroidism in Post-Op Diagnosis: 39 week intrauterine Prior Section, Desires repeat section AMA Anti-E isoimmunization IVF pregancy Hypothyroidism in Delivery of live male child at 0808 Procedure Operation Date: 05/01/19 07:30 Actual Procedures Repeat Low Transverse Section Surgeon Nazia Castillo MD, FACOG Gun[employer] Apprentice Dr. Yancey Estimated Blood Loss 500 Findings Consistent with Post-Op Diagnosis (viable male infant , apgars 8,9. weight 8# 7oz. uterus with adhesions of bladder to anterior wall, iglesias balloon at anterior lower uterine segment. right ovary seen and normal. left ovary obscured and not seen but palpably normal. adhesions of sigmoid colon to left sidewall and posterior uterus. ) Fluids 1500 Specimens cord blood for donation Drains iglesias Anesthesia Type Spinal Complications none Disposition Accompanied Patient To Recovery: No Disposition: L&D Indications 38yo at 39+wks mohan presents to L&D for planned repeat section. Patient aware of her risks, and alternatives and wants to proceed. She has h/o bilateral salpingectomies. See her history and physical for full details. Description of Procedure The patient was taken to the operating room and identified. After adequate spinal anesthesia was obtained, she was placed in the supine position with a leftward tilt on the operating table and prepped and draped in the usual sterile fashion. A iglesias catheter had already been placed under sterile conditions. The knife was used to create a Pfannenstiel skin incision that was carried down to the underlying layer of fascia. The fascia was nicked in the midline and this opening was extended laterally using Rockwell scissors. Bushra clamps were placed on the superior aspect of the fascial incision tenting it upward and the underlying rectus muscles were dissected off the overlying fascia both sharply and bluntly using Rockwell scissors. An opening in the peritoneum had been created. Using this opening further dissection took place with care not to injure the bladder and the peritoneal opening was then bluntly stretched. The bladder blade was placed. The bladder was adhesed high on the anterior uterus with the iglesias bulb evident at the lower uterine segment. The vesicouterine peritoneum was elevated and opened up into and the bladder flap was created digitally and bladder blade was replaced. The knife was used to create a hysterotomy and this opening was stretched. The operators hand was placed through the hysterotomy and the bladder blade was removed. The head was elevated and flexed and with fundal pressure the head was delivered. The shoulders and body were rapidly delivered. The cord was clamped and cut. The infant was handed off to the awaiting pediatricians. The placenta was manually expressed and handed off as cord blood for donation was requested by patient. The uterus was exteriorized and cleared of all clots and debris. Dilute IV Pitocin was begun. The uterine tone was improving. The hysterotomy was closed in a running interlocking fashion using 0 Vicryl followed by interuppted second imbricating figure of eight stitches of 0 Vicryl. The hysterotomy was hemostatic. Small bleeding vessels along the bladder flap were cauterized with care using bovie cautery. The pelvis was irrigated. The uterus was returned to the abdomen. The gutters were cleared of all clots and debris. The hysterotomy was reinspected and noted to be hemostatic. The fascia was then closed in running fashion using 0 Vicryl. The subcutaneous fat was copiously irrigated and reapproximated using 2-0 chromic. The skin was closed in a subcuticular fashion using 4-0 Vicryl. At this point the procedure was terminated. The patient was transferred to the recovery room in stable condition. All sponge, lap and needle counts were sánchez ect x2. I attest to the content of the Intraoperative Record and any orders documented therein. Any exceptions are noted below.
[2019-05-01] MEDS ORDERED: OXYTOCIN 20 UNITS in LACTATED RINGER'S 1,000 ML IV SCH ×2 (10:30→12:20)
[2019-05-01] MEDS ORDERED: LEVOTHYROXINE SODIUM 50 MCG TABLET PO SCH (12:07)
[2019-05-01] MEDS ORDERED: MAGNESIUM HYDROXIDE SUSP 30 ML UDC PO PRN (12:07)
[2019-05-01] MEDS ORDERED: SUPERCREAM 0.870% 15 GM JAR EXT PRN (12:07)
[2019-05-01] MEDS ORDERED: HYDROCORTISONE ACETATE 25 MG SUPP PR PRN (12:07)
[2019-05-01] MEDS ORDERED: DIPHTHERIA/TETANUS/PERTUSSIS 0.5 ML SYR/VIAL IM ONE (12:07)
[2019-05-01] MEDS ORDERED: BENZOCAINE 20% AER SPR 82.5 GM CAN EXT PRN (12:07)
[2019-05-01] MEDS: SIMETHICONE 80 MG CHEW PO SCH (20:52)
[2019-05-01] MEDS: DOCUSATE SODIUM 100 MG CAP PO SCH (20:52)
[2019-05-02] MEDS ORDERED: PROMETHAZINE HCL 25 MG in SODIUM CHLORIDE 0.9% 50 ML IV PRN (01:53)
[2019-05-02] MEDS ORDERED: ONDANSETRON INJ 2 MG/ML 2 ML VIAL IV PRN (01:53)
[2019-05-02] MEDS ORDERED: MEPERIDINE HCL 50 MG/ML CARP IV PRN (01:53)
[2019-05-02] MEDS ORDERED: DiphenhydrAMINE HCL 50 MG/ML VIAL IV PRN (01:53)
[2019-05-02] MEDS ORDERED: KETOROLAC 30 MG/ML VIAL IV PRN (01:53)
[2019-05-02] MEDS: LEVOTHYROXINE SODIUM 50 MCG TABLET PO SCH (06:13)
[2019-05-02] MEDS: OXYCODONE/ACETAMINOPHEN 5mg/325mg TAB PO PRN ×4 (06:17→21:14)
--- NOTE | 2019-05-02 06:17 | Obstetrical Progress Note ---
Date of Service <Zuhair Nieves DO - Last Filed: 05/02/19 07:07> May 02, 2019 Assessment & Plan <DO Gill Rivas Last Filed: 05/02/19 07:07> (1) resulting from assisted reproductive technology: POD#1 - Vital Signs reviewed and WNL. (Tmax at 36.8) Hemoglobin Reviewed. 11.4 today. - Blood Type: A+, GBS- - Pt is doing well clinically. - Encourage Ambulation, Monitor and Control pain with Motrin PRN, Resume regular diet, Monitor Lochia Encourage Breast Feeding. Present on Admission?: Yes Day #:: 1 Subjective <Zuhair Nieves DO - Last Filed: 05/02/19 07:07> Ambulation: ambulating normally Voiding: no voiding problems Passing Gas:: Yes Diet Tolerance:: regular diet Lochia:: Small Feeding Type:: breast feeding Current Pain Level(1-10): 1 (controlled with analgesics ) Post Op Day #1 repeat patient states that she is doing well this morning and had no events overnight. Constitutional: no fever and no chills Respiratory: no cough, no dyspnea and no wheezing Cardiovascular: no chest pain, no palpitations and no calf pain Breast: no breast pain Gastrointestinal: no vomiting Genitourinary (female): + vaginal discharge (Small amount of lochia noted.); no dysuria, no difficulty urinating and no flank pain Neurologic: no headache(s) Physical Exam <DO Gill Rivas Last Filed: 05/02/19 07:07> Constitutional well developed and well nourished; no acute distress Respiratory normal respiratory effort, lungs clear to auscultation Cardiovascular Rate/Rhythm: regular rate and regular rhythm Heart Sounds: normal S1 and normal S2; no gallop, no murmur and no cardiac rub Extremities: + edema (+1); no calf tenderness Gastrointestinal (Abdomen) Inspection/Auscultation: abdomen normal to inspection, normal bowel sounds and + abdominal surgical incision (Clean and Dry, no pus noted.) Percussion/Palpation: abdomen soft Genitourinary OB Exam Abdomen: + fundal height Fundus: + relation to umbilicus (3cm below ); not tender and not boggy Results & Data <DO Gill Rivas Last Filed: 05/02/19 07:07> Vital Signs (Past 12 Hours) Vital Signs Temp Pulse Resp BP Pulse Ox 05/02/19 03:50 36.7 C 71 18 110/68 100 05/02/19 02:00 16 97 05/02/19 01:25 20 98 05/02/19 00:30 18 98 05/01/19 23:40 36.5 C 76 20 105/70 99 05/01/19 22:20 18 99 05/01/19 21:20 20 98 05/01/19 20:20 18 99 05/01/19 19:20 36.8 C 69 18 115/74 99 05/01/19 19:00 20 99 Laboratory Results Abnormal lab results 05/01/19 Range/Units 05:57 Antibody Screen POSITIVE A Crossmatch See Detail Medications Administered Current Inpatient Medications Benzocaine (Dermoplast Pain Relieving [place]) 1 appln EXT UD PRN PRN Reason: use on skin as needed Stop: 05/31/19 12:06 Cocaine HCl (Supercream 0.870%) 1 gm EXT UD PRN PRN Reason: hemmorrhoidal inflammation Stop: 05/15/19 12:06 Diphenhydramine HCl (Benadryl) 25 mg IV QID PRN PRN Reason: Itching Stop: 06/01/19 01:52 Diphenhydramine HCl (Benadryl Capsule) 25 mg PO QID PRN PRN Reason: Itching Stop: 06/01/19 01:52 Docusate Sodium (Colace) 100 mg PO DAILY@08,21 [facility] Stop: 05/31/19 20:59 Last Admin: 05/01/19 20:52 Dose: 100 mg Documented by: Ferrous Sulfate (Feosol) 325 mg PO DAILY@08 [facility] Stop: 06/01/19 07:59 Hydrocortisone (Anusol Hc) 25 mg KS BID PRN PRN Reason: Hemorrhoids Stop: 05/31/19 12:06 Lactated Ringer's (Lr) 1,000 mls @ 125 mls/hr IV .Q8H [facility] Stop: 05/31/19 06:37 Oxytocin 20 units/ Lactated (Ringer's) 1,002 mls @ 125 mls/hr IV .Q8H1M [facility] Stop: 05/31/19 10:29 Last Admin: 05/01/19 10:26 Dose: 125 mls/hr Documented by: Promethazine HCl 25 mg/ Sodium (Chloride) 51 mls @ 204 mls/hr IV Q4H PRN PRN Reason: Nausea And Vomiting Stop: 06/01/19 01:52 Lactated Ringer's (Lr) 1,000 mls @ 125 mls/hr IV .Q8H [facility] Stop: 05/31/19 12:19 Ibuprofen (Motrin) 600 mg PO Q4H PRN PRN Reason: Pain Stop: 05/31/19 12:06 Ketorolac Tromethamine (Toradol) 30 mg IV Q6H PRN PRN Reason: Pain Stop: 05/07/19 01:52 Levothyroxine Sodium (Synthroid) 50 mcg PO DAILYBB [facility] Stop: 06/01/19 06:29 Last Admin: 05/02/19 06:13 Dose: 50 mcg Documented by: Magnesium Hydroxide (Milk Of Magnesia) 30 ml PO HS PRN PRN Reason: Constipation Stop: 05/31/19 12:06 Meperidine HCl (Demerol) 50 - 75 mg IV Q4H PRN PRN Reason: Pain Stop: 05/16/19 01:52 Ondansetron HCl (Zofran) 4 mg IV Q4H PRN PRN Reason: Nausea And Vomiting Stop: 06/01/19 01:52 Oxycodone/Acetaminophen (Percocet 5mg/325mg) 1 - 2 tab PO Q4H PRN PRN Reason: Pain Stop: 05/16/19 01:52 Last Admin: 05/02/19 06:17 Dose: 1 tab Documented by: Prenat Multivit/Medical Review Coordinator/Iron/Folic Ac ( Vitamin) 1 tab PO DAILY@08 [facility] Stop: 06/01/19 07:59 Simethicone (Mylicon) 80 mg PO DAILY@08,13,17,21 [facility] Stop: 05/31/19 12:59 Last Admin: 05/01/19 20:52 Dose: 80 mg Documented by: <Matilde Yancey MD - Last Filed: 05/02/19 07:08> Co-Signing Physician Notes I have reviewed the resident's note and examined the patient myself, and agree with the note above. Resident Activity Tracking <Zuhair Nieves DO - Last Filed: 05/02/19 07:07> Resident Involvement: Resident Care Provided Care Provided: OB Delivery
[2019-05-02 06:50] LABS: Basophils # (auto) 0.02 K/uL (0-0.2); Basophils % (auto) 0.2 %; Eosinophils # (auto) 0.05 K/uL (0-0.5); Eosinophils % (auto) 0.5 %; Hematocrit (blood only) 33.7 % (37-47); Hemoglobin 11.2 g/dL (12.0-16.0); Immature Granulocytes # (auto) 0.04 K/uL (0.00-0.02); Immature Granulocytes % (auto) 0.4 %; Lymphocytes # (auto) 1.65 K/uL (1.2-3.4); Lymphocytes % (auto) 14.9 %; Mean Corpuscular Hemoglobin 31.8 pg (25-34); Mean Corpuscular Hgb Conc 33.2 g/dL (32-36); Mean Corpuscular Volume 95.7 fL (80-100); Monocytes % (auto) 7.2 %; Neutrophils # (auto) 8.49 K/uL (1.4-6.5); Neutrophils % (auto) 76.8 %; Platelet Count 148 K/uL (130-400); RDW Coefficient of Variation 14.7 % (11.5-14.5); Red Blood Count 3.52 M/uL (4.2-5.4); White Blood Count 11.05 K/uL (4.8-10.8)
--- NOTE | 2019-05-02 08:33 | Anesthesiology Progress Note ---
Date of Service May 02, 2019 Anesthesia Post Procedure Vital Signs Vital Signs: Temp Pulse Pulse Pulse Resp BP BP 05/02/19 07:42 36.7 C 68 18 05/02/19 03:50 36.7 C 71 18 110/68 05/02/19 02:00 16 05/02/19 01:25 20 05/02/19 00:30 18 05/01/19 23:40 36.5 C 76 20 105/70 05/01/19 22:20 18 05/01/19 21:20 20 05/01/19 20:20 18 05/01/19 19:20 36.8 C 69 18 115/74 05/01/19 19:00 20 05/01/19 18:00 18 05/01/19 17:00 18 05/01/19 16:15 36.5 C 69 18 115/79 05/01/19 16:00 20 05/01/19 14:53 20 05/01/19 14:00 20 05/01/19 13:00 18 05/01/19 12:00 36.5 C 76 18 119/85 05/01/19 11:15 36.5 C 65 18 114/74 05/01/19 10:59 77 05/01/19 10:56 70 101/66 05/01/19 10:54 71 05/01/19 10:49 78 05/01/19 10:44 68 05/01/19 10:39 76 05/01/19 10:34 69 05/01/19 10:29 69 05/01/19 10:27 69 113/71 05/01/19 10:24 72 05/01/19 10:19 76 05/01/19 10:14 74 05/01/19 10:09 78 05/01/19 10:04 73 05/01/19 09:59 78 05/01/19 09:54 73 110/73 05/01/19 09:49 71 05/01/19 09:44 78 107/72 05/01/19 09:39 71 05/01/19 09:34 68 96/54 L 05/01/19 09:32 73 103/57 L 05/01/19 09:29 73 05/01/19 09:24 83 05/01/19 09:19 71 05/01/19 09:16 76 110/55 L 05/01/19 09:14 77 05/01/19 09:09 66 05/01/19 09:04 70 104/60 05/01/19 08:59 79 05/01/19 08:57 73 05/01/19 08:55 67 101/60 05/01/19 08:54 69 BP Pulse Ox 05/02/19 07:42 108/73 98 05/02/19 03:50 100 05/02/19 02:00 97 05/02/19 01:25 98 05/02/19 00:30 98 05/01/19 23:40 99 05/01/19 22:20 99 05/01/19 21:20 98 05/01/19 20:20 99 05/01/19 19:20 99 05/01/19 19:00 99 05/01/19 18:00 98 05/01/19 17:00 99 05/01/19 16:15 99 05/01/19 16:00 99 05/01/19 14:53 99 05/01/19 14:00 98 05/01/19 13:00 100 05/01/19 12:00 100 05/01/19 11:15 100 05/01/19 10:59 100 05/01/19 10:56 05/01/19 10:54 99 05/01/19 10:49 99 05/01/19 10:44 99 05/01/19 10:39 99 05/01/19 10:34 98 05/01/19 10:29 98 05/01/19 10:27 05/01/19 10:24 98 05/01/19 10:19 98 05/01/19 10:14 99 05/01/19 10:09 97 05/01/19 10:04 97 05/01/19 09:59 98 05/01/19 09:54 96 05/01/19 09:49 97 05/01/19 09:44 97 05/01/19 09:39 98 05/01/19 09:34 97 05/01/19 09:32 05/01/19 09:29 97 05/01/19 09:24 97 05/01/19 09:19 97 05/01/19 09:16 05/01/19 09:14 97 05/01/19 09:09 98 05/01/19 09:04 100 05/01/19 08:59 97 05/01/19 08:57 92 05/01/19 08:55 05/01/19 08:54 99 Pain Intensity Abdomen: Pain Intensity: 1 Notes Mental Status: alert / awake / arousable and participated in evaluation Patient Amnestic to Procedure: Yes Nausea / Vomiting: adequately controlled Pain: adequately controlled Airway Patency, RR, SpO2: stable & adequate BP & HR: stable & adequate Hydration State: stable & adequate Neuraxial Anesthesia: was administered and sensory block resolved Anesthetic Complications: no major complications apparent and Pt Satisfied with anesthetic care
[2019-05-02] MEDS: PRENATAL VITAMIN 1 TAB PO SCH (08:45)
[2019-05-02] MEDS: FERROUS SULFATE 325 MG TAB PO SCH (08:45)
[2019-05-02] MEDS: DOCUSATE SODIUM 100 MG CAP PO SCH ×2 (08:45→21:15)
[2019-05-02] MEDS: SIMETHICONE 80 MG CHEW PO SCH ×4 (08:45→21:15)
[2019-05-02] MEDS: IBUPROFEN 600 MG TAB PO PRN ×3 (11:43→21:15)
[2019-05-02] MEDS ORDERED: BISACODYL 5 MG TABEC PO STA (17:13)
[2019-05-03] MEDS: IBUPROFEN 600 MG TAB PO PRN ×2 (02:57→10:11)
[2019-05-03] MEDS: LEVOTHYROXINE SODIUM 50 MCG TABLET PO SCH (05:50)
[2019-05-03] MEDS: OXYCODONE/ACETAMINOPHEN 5mg/325mg TAB PO PRN ×2 (05:50→10:12)
--- NOTE | 2019-05-03 06:57 | Obstetrical Progress Note ---
Date of Service <Zuhair Nieves DO - Last Filed: 05/03/19 07:31> May 03, 2019 Assessment & Plan <Zuhair Nieves DO - Last Filed: 05/03/19 07:31> (1) resulting from assisted reproductive technology: POD#2 - Vital Signs reviewed and WNL. (Tmax at 36.9) - Blood Type: A+, GBS- - Pt is doing well clinically. - Encourage Ambulation, Monitor and Control pain with Motrin PRN, Resume regular diet, Monitor Lochia Encourage Breast Feeding. -Patient counseled on discharge today. Present on Admission?: Yes Day #:: 2 Subjective <Zuhair Nieves DO - Last Filed: 05/03/19 07:31> Ambulation: ambulating normally Voiding: no voiding problems Passing Gas:: Yes Diet Tolerance:: regular diet Lochia:: Small Feeding Type:: breast feeding Current Pain Level(1-10): 2 (improves with analgesics ) Patient is a POD#2 who notes she is feeling well today. She notes that if possible, she would like to be discharged later today. Constitutional: no fever and no chills Respiratory: no cough, no dyspnea and no wheezing Cardiovascular: + edema; no chest pain, no palpitations and no calf pain Breast: no breast pain Gastrointestinal: no abdominal pain, no nausea and no vomiting Genitourinary (female): no dysuria, no difficulty urinating and no flank pain Neurologic: no headache(s) Physical Exam <DO Gill Rivas Last Filed: 05/03/19 07:31> Constitutional WD/WN, vitals as above no acute distress Respiratory normal respiratory effort, lungs clear to auscultation Cardiovascular Rate/Rhythm: regular rate and regular rhythm Heart Sounds: normal S1 and normal S2; no gallop, no murmur and no cardiac rub Extremities: + edema (+1); no calf tenderness Gastrointestinal (Abdomen) Inspection/Auscultation: abdomen normal to inspection, normal bowel sounds and + abdominal surgical incision (Clean and Dry, no pus noted.) Percussion/Palpation: abdomen soft Genitourinary OB Exam Abdomen: + fundal height Fundus: + relation to umbilicus (3cm below ); not tender and not boggy Results & Data <Zuhair Bustamanten, DO - Last Filed: 05/03/19 07:31> Vital Signs (Past 12 Hours) Vital Signs Temp Pulse Resp BP Pulse Ox 05/02/19 23:50 36.6 C 68 16 112/73 95 05/02/19 20:20 36.8 C 76 16 114/73 99 Medications Administered Current Inpatient Medications Benzocaine (Dermoplast Pain Relieving [place]) 1 appln EXT UD PRN PRN Reason: use on skin as needed Stop: 05/31/19 12:06 Cocaine HCl (Supercream 0.870%) 1 gm EXT UD PRN PRN Reason: hemmorrhoidal inflammation Stop: 05/15/19 12:06 Diphenhydramine HCl (Benadryl) 25 mg IV QID PRN PRN Reason: Itching Stop: 06/01/19 01:52 Diphenhydramine HCl (Benadryl Capsule) 25 mg PO QID PRN PRN Reason: Itching Stop: 06/01/19 01:52 Docusate Sodium (Colace) 100 mg PO DAILY@08,21 [facility] Stop: 05/31/19 20:59 Last Admin: 05/02/19 21:15 Dose: 100 mg Documented by: Ferrous Sulfate (Feosol) 325 mg PO DAILY@08 [facility] Stop: 06/01/19 07:59 Last Admin: 05/02/19 08:45 Dose: 325 mg Documented by: Hydrocortisone (Anusol Hc) 25 mg OR BID PRN PRN Reason: Hemorrhoids Stop: 05/31/19 12:06 Lactated Ringer's (Lr) 1,000 mls @ 125 mls/hr IV .Q8H [facility] Stop: 05/31/19 06:37 Oxytocin 20 units/ Lactated (Ringer's) 1,002 mls @ 125 mls/hr IV .Q8H1M [facility] Stop: 05/31/19 10:29 Last Admin: 05/01/19 10:26 Dose: 125 mls/hr Documented by: Promethazine HCl 25 mg/ Sodium (Chloride) 51 mls @ 204 mls/hr IV Q4H PRN PRN Reason: Nausea And Vomiting Stop: 06/01/19 01:52 Lactated Ringer's (Lr) 1,000 mls @ 125 mls/hr IV .Q8H [facility] Stop: 05/31/19 12:19 Ibuprofen (Motrin) 600 mg PO Q4H PRN PRN Reason: Pain Stop: 05/31/19 12:06 Last Admin: 05/03/19 02:57 Dose: 600 mg Documented by: Ketorolac Tromethamine (Toradol) 30 mg IV Q6H PRN PRN Reason: Pain Stop: 05/07/19 01:52 Levothyroxine Sodium (Synthroid) 50 mcg PO DAILYBB [facility] Stop: 06/01/19 06:29 Last Admin: 05/03/19 05:50 Dose: 50 mcg Documented by: Magnesium Hydroxide (Milk Of Magnesia) 30 ml PO HS PRN PRN Reason: Constipation Stop: 05/31/19 12:06 Last Admin: 05/02/19 21:13 Dose: 30 ml Documented by: Meperidine HCl (Demerol) 50 - 75 mg IV Q4H PRN PRN Reason: Pain Stop: 05/16/19 01:52 Ondansetron HCl (Zofran) 4 mg IV Q4H PRN PRN Reason: Nausea And Vomiting Stop: 06/01/19 01:52 Oxycodone/Acetaminophen (Percocet 5mg/325mg) 1 - 2 tab PO Q4H PRN PRN Reason: Pain Stop: 05/16/19 01:52 Last Admin: 05/03/19 05:50 Dose: 1 tab Documented by: Prenat Multivit/[place]/Iron/Folic Ac ( Vitamin) 1 tab PO DAILY@08 [facility] Stop: 06/01/19 07:59 Last Admin: 05/02/19 08:45 Dose: 1 tab Documented by: Simethicone (Mylicon) 80 mg PO DAILY@08,13,17,21 [facility] Stop: 05/31/19 12:59 Last Admin: 05/02/19 21:15 Dose: 80 mg Documented by: <Latisha Lowry MD, FACOG - Last Filed: 05/03/19 07:33> Co-Signing Physician Notes Resident Physician Supervision Note: I interviewed and examined the patient. Discussed with Dr. Nieves and agree with findings and plan as documented in the note. Any exceptions or clarifications are listed here: Doing well. Plan d/c. Instructions given. Documented By: Latisha Lowry MD, FACOG Resident Activity Tracking <Zuhair Nieves DO - Last Filed: 05/03/19 07:31> Resident Involvement: Resident Care Provided Care Provided: OB Delivery
[2019-05-03 08:09] LABS: Hemoglobin 11.8 g/dL (12.0-16.0)
[2019-05-03] MEDS: PRENATAL VITAMIN 1 TAB PO SCH (08:28)
[2019-05-03] MEDS: FERROUS SULFATE 325 MG TAB PO SCH (08:28)
[2019-05-03] MEDS: DOCUSATE SODIUM 100 MG CAP PO SCH (08:28)
--- NOTE | 2019-05-04 09:41 | Discharge Summary ---
Date of Service Day of admission: May 01, 2019 Day of discharge : May 03, 2019 Admission HPI Per Admitting Provider 38yo at 39+wks mohan will present to L&D on 05/01/19 for planned section. Doing well today, seen in office 04/19/19. No rom, vb. +FM. No ctx. NST react nicole. Feels well. PNC c/b 1. AMA 2. Prior c/s 3. 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 titres always neg. PNL Rh pos, ri, gbs neg OBH: prior c/s-- tachycardia GYNH: nl paps, no stds See admission H&P for more details. Discharge Data Consultations 05/01/19 05:38 Consult Anesthesiology Stat Procedures Performed Operation Date: 05/01/19 07:30 Repeat Low Transverse Section. Hospital Course (1) Supervision of elderly multigravida: (2) resulting from assisted reproductive technology: (3) Hypothyroid in , antepartum: (4) History of delivery, currently : (5) Antibody E isoimmunization affecting , antepartum: Patient was admitted on 05/01/19 at 39+ weeks where above stated procedure was performed. Her postoperative course and recovery was uncomplicated. She was tolerating a regular diet, voiding spontaneously without difficulty and ambulating without difficulty and was stable for discharge to home on her postoperative day #2. She was given appropriate instructions and discharge paperwork and prescriptions. Her postoperative hemoglobin was 11.8 g/dL.
== END 2019-05-03 10:52 | disposition home or self-care (01) | DRG 787 ==
LOC: 4S1 05:31 → EDSTATUS 07:30 → 4S2 11:10